=== PATIENT | male | born 1975 | race Caucasian/White ===

== ENCOUNTER 2018-05-24 15:24 | Outpatient (REF) | payer MEDICAID, SELFPAY ==
[2018-05-24 20:46] LABS: ALT 25 U/L (12-78); AST 24 U/L (15-37); Alkaline Phosphatase 109 U/L (46-116); Anion Gap 10.4 mmol/L (3-11); BUN 11 mg/dL (7-18); Bilirubin, Total 0.2 mg/dL (0.2-1.0); CO2 24.6 mmol/L (21.0-32.0); CREATININE 0.84 mg/dL (0.70-1.30); Chloride 106 mmol/L (98-107); Cholesterol 249 mg/dL (50-200); Glucose 123 mg/dL (70-100); HDL Cholesterol 51 mg/dL (40-60); LDL CHOLESTEROL 172 mg/dL (<100); Potassium 4.2 mmol/L (3.5-5.1); Sodium 141 mmol/L (136-145); Total Protein 7.1 g/dL (6.4-8.2); Triglyceride 141 mg/dL (30-150)
[2018-05-24 20:49] LABS: Abs Immature Grans 0.01 k/cumm (0.0-0.09); Absolute Basophil Count 0.09 k/cumm (0.0-0.2); Absolute Eosinophil Count 0.32 k/cumm (0.0-0.7); Absolute Lymphocyte Count 1.25 k/cumm (1.2-3.4); Absolute Monocyte Count 0.72 k/cumm (0.11-0.7); Basophils % 1.8; Eosinophils % 6.5; HGB 14.3 g/dL (13.5-17.5); Immature Grans % 0.2; Lymphocytes % 25.6; Mean Corp. HGB Concentration 33.3 g/dL (32.0-36.0); Mean Corpuscular Hemoglobin 31.5 pg (27.0-33.0); Mean Corpuscular Volume 94.7 fL (80-95); Mean Platelet Volume 11.1 fL (8.0-11.0); Monocytes % 14.7; Neutrophils % 51.2; Platelet Count 333 x1000/uL (130-400); RBC 4.54 m/cumm (4.50-6.00); White Blood Cell Count 4.89 k/cumm (4.4-10.8)
[2018-05-25 13:35] LABS: Calcium 8.9 mg/dL (8.5-10.1)
== END 2018-05-24 15:44 ==
LOC: NCHCN 15:24
PROVIDERS: PCP Internal Medicine; Visit Provider Family Medicine
DX: F32.9 Major depressive disorder, single episode, unspecified (principal); G40.209 Localization-related (focal) (partial) symptomatic epilepsy and epileptic syndromes with complex partial seizures, not intractable, without status epilepticus; F17.200 Nicotine dependence, unspecified, uncomplicated; E66.9 Obesity, unspecified; Z68.32 Body mass index [BMI] 32.0-32.9, adult
CPT/HCPCS: 80053; 80061; 83721; 84443; 85025

== ENCOUNTER 2020-04-19 12:22 | Outpatient (REF) | payer SELFPAY ==
[2020-04-19 19:17] LABS: Abs Immature Grans 0.01 10^3/uL (0.0-0.06); Absolute Basophil Count 0.08 10^3/uL (0.0-0.2); Absolute Eosinophil Count 0.25 10^3/uL (0.0-0.7); Absolute Lymphocyte Count 1.39 10^3/uL (1.2-3.4); Absolute Monocyte Count 0.56 10^3/uL (0.1-0.8); Absolute Neutrophil Count 2.93 10^3/uL (1.2-6.7); Basophils % 1.5; Eosinophils % 4.8; HCT 41.2 % (40.0-50.0); Immature Grans % 0.2; Lymphocytes % 26.6; MCH 32.1 pg (27.0-33.0); MCV 94.5 fL (80-95); MPV 11.8 fL (8.0-11.0); Monocytes % 10.7; Neutrophils % 56.2; Nucleated RBC 0 %; Platelet Count 308 10^3/uL (130-400); RBC 4.36 10^6/uL (4.36-5.78); RDW 13.2 % (11.8-14.1); WBC 5.22 10^3/uL (4.4-10.8)
[2020-04-19 20:14] LABS: Iron 137 ug/dL (65-175)
[2020-04-19 20:17] LABS: ALT 37 U/L (16-63); AST 20 U/L (15-37); Albumin 4.3 g/dL (3.4-5.0); Alkaline Phosphatase 75 U/L (46-116); Anion Gap 8.6 mmol/L (3-11); BUN 15 mg/dL (7-18); Bilirubin, Total 0.4 mg/dL (0.2-1.0); CO2 25.4 mmol/L (21.0-32.0); CREATININE 0.85 mg/dL (0.70-1.30); Calcium 8.6 mg/dL (8.5-10.1); Calculated LDL 186 mg/dL (<100); Chloride 102 mmol/L (98-107); Cholesterol 261 mg/dL (<200); Glucose 92 mg/dL (74-106); HDL Cholesterol 54 mg/dL (40-60); Potassium 4.4 mmol/L (3.5-5.1); Sodium 136 mmol/L (136-145); Total Protein 7.1 g/dL (6.4-8.2); Triglyceride 105 mg/dL (<150)
[2020-04-22 10:30] LABS: Hepatitis C Ab w Rflx HCV PCR Negative (Negative)
== END 2020-04-19 12:42 ==
LOC: NCHCN 12:22
PROVIDERS: PCP Internal Medicine; Visit Provider Registered Nurse
DX: E78.5 Hyperlipidemia, unspecified (principal); F32.9 Major depressive disorder, single episode, unspecified; G40.209 Localization-related (focal) (partial) symptomatic epilepsy and epileptic syndromes with complex partial seizures, not intractable, without status epilepticus; E66.9 Obesity, unspecified; Z00.00 Encounter for general adult medical examination without abnormal findings; Z11.59 Encounter for screening for other viral diseases
CPT/HCPCS: 80053; 80061; 86803; 83540; 85025